=== PATIENT | female | born 1960 | race Hispanic/Latino ===

== ENCOUNTER 2016-12-04 17:46 | Emergency (ER) | payer MEDICARE, BC ==
[2016-12-04 17:46] VITALS: BMI 34.4
[2016-12-04 18:10] VITALS: RESP 18; TEMP 98.5
[2016-12-04] MEDS ORDERED: Sodium Chloride 0.9% 1,000 ML IV STA (18:50)
[2016-12-04] MEDS ORDERED: Iohexol 240 (50 ml) ONE (18:55)
--- NOTE | 2016-12-04 18:58 | ED PDOC ---
Arrival/HPI - General Chief Complaint: Abnormal Skin Integrity Time Seen by Provider: 12/04/16 17:59 Historian: Patient - History of Present Illness Narrative History of Present Illness (Text): 12/04/16 18:52 This 56 yo female presents to this ED c/o right sided abdominal pain, distention , and right sided abscess with surrounding erythema x 7 days. Patient stated she saw Dr. Mcknight last week for diarrhea, who recommended Levaquin, and Vancomycin PO x 1 week. She stated this medication was supposed to help fir her abdominal abscess. However, abscess has worsen today. Patient saw Dr. Arsenio MENDENHALL, who recommended her to go to ED for evaluation, and recommended patient to have Dr. Coombs General surgeon to examine her. Patient noted a fever 2 days ago. Patient denies sob, cp, or urinary symptoms. Time/Duration: > week Quality: Aching Context: Home Past Medical History - Provider Review Nursing Documentation Reviewed: Yes - Infectious Disease Hx of Infectious Diseases: None - Cardiac Hx Pacemaker: No - Pulmonary Hx Respiratory Disorders: No - Neurological Hx Paralysis: No - HEENT Hx HEENT Disorder: No - Renal Hx Renal Disorder: No - Endocrine/Metabolic Hx Hypothyroidism: Yes - Hematological/Oncological Hx Blood Transfusions: No Hx Blood Transfusion Reaction: No - Integumentary Hx Dermatological Disorder: No - Musculoskeletal/Rheumatological Hx Musculoskeletal Disorders: Yes (SPINAL STENOSIS/HERNIATED DIACS) - Gastrointestinal Hx Colitis: Yes Hx Diverticulitis: Yes Hx Gall Bladder Disease: Yes Hx Gastritis: Yes - Genitourinary/Gynecological Hx Genitourinary Disorders: No - Psychiatric Hx Emotional Abuse: No Hx Physical Abuse: No Hx Substance Use: No - Surgical History Hx Cholecystectomy: Yes (May 2015) - Anesthesia Hx Anesthesia: Yes Hx Anesthesia Reactions: Yes (CHILLS AT NITE AFTER GB SX) Hx Malignant Hyperthermia: No - Suicidal Assessment Feels Threatened In Home Enviroment: No Family/Social History - Physician Review Nursing Documentation Reviewed: Yes Family/Social History: No Known Family HX Smoking Status: Never Smoked Hx Alcohol Use: Yes (WINE) Hx Substance Use: No Allergies/Home Meds Allergies/Adverse Reactions: Allergies ciprofloxacin [From Cipro] Allergy (Severe, Verified 12/04/16 18:10) FLU LIKE SYMPTOMS ciprofloxacin HCl [From Cipro] Allergy (Severe, Verified 12/04/16 18:10) FLU LIKE SYMPTOMS levofloxacin [From Levaquin] Allergy (Severe, Verified 12/04/16 18:10) FLU LIKE SYMPTOMS mesalamine [From Lialda] Allergy (Severe, Verified 12/04/16 18:10) DIZZINESS moxifloxacin HCl [From Avelox] Allergy (Severe, Verified 12/04/16 18:10) ANAPHYLAXIS Sulfa (Sulfonamide Antibiotics) Allergy (Intermediate, Verified 12/04/16 18:10) RASH metronidazole [From Flagyl] Adverse Reaction (Severe, Verified 12/04/16 18:10) SEVERE DIARRHEA Home Medications: Home Meds Medication Instructions Recorded Confirmed Acetaminophen/Oxycodone Hydr 1 tab PO Q6H PRN 05/10/15 08/18/16 [Percocet 10/325 mg Tab] Alprazolam [Xanax] 1 mg PO TID 05/10/15 08/18/16 Ondansetron ODT [Zofran ODT] 8 mg PO PRN PRN 05/10/15 08/18/16 Olmesartan Medoxomil [Benicar] 5 mg PO QAM 09/14/15 08/18/16 Loperamide [Loperamide HCl] 2 mg PO PRN PRN 08/17/16 Review of Systems - Review of Systems Constitutional: Normal. absent: Fatigue, Weight Change, Fevers, Night Sweats Eyes: Normal ENT: Normal Respiratory: Normal. absent: SOB, Cough Cardiovascular: Normal Gastrointestinal: Abdominal Pain, Diarrhea (chronic), Nausea (chronic). absent : Vomiting Genitourinary Female: Normal. absent: Dysuria, Frequency, Hematuria Musculoskeletal: Normal Skin: Abscess, Cellulitis (see HPI) Neurological: Normal. absent: Headache, Dizziness, Focal Weakness Endocrine: Normal Hemo/Lymphatic: Normal Psychiatric: Normal Physical Exam Vital Signs Temp Pulse Resp BP Pulse Ox 12/04/16 18:35 98.5 F 88 18 176/97 H 97 12/04/16 18:03 98.5 F 88 18 176/97 H 97 Temperature: Afebrile Blood Pressure: Normal Pulse: Regular Respiratory Rate: Normal Appearance: Positive for: Well-Appearing, Non-Toxic, Comfortable Pain Distress: None Mental Status: Positive for: Alert and Oriented X 3 - Systems Exam Head: Present: Atraumatic, Normocephalic Pupils: Present: PERRL Extroacular Muscles: Present: EOMI Conjunctiva: Present: Normal Mouth: Present: Moist Mucous Membranes Neck: Present: Normal Range of Motion Respiratory/Chest: Present: Clear to Auscultation, Good Air Exchange. No: Respiratory Distress, Accessory Muscle Use Cardiovascular: Present: Regular Rate and Rhythm, Normal S1, S2. No: Murmurs Abdomen: Present: Normal Bowel Sounds, Other ((+) right sided abdominal abscess , approx 4 cm, with surrounding erythema). No: Tenderness, Distention, Peritoneal Signs, Rebound, Guarding Back: Present: Normal Inspection Upper Extremity: Present: Normal Inspection. No: Cyanosis, Edema Lower Extremity: Present: Normal Inspection. No: Edema Neurological: Present: GCS=15, CN II-XII Intact, Speech Normal Skin: Present: Warm, Dry, Normal Color. No: Rashes Psychiatric: Present: Alert, Oriented x 3, Normal Insight, Normal Concentration Medical Decision Making ED Course and Treatment: 12/04/16 22:[address] Alvarez regarding patient c/o abdominal abscess. He said if patient needs an I&D to do it, and give patient ABX. If not, give patient ABX and f/u his office tomorrow. He said to avoid prescribing patient narcotics. 12/04/16 23:50 market president had evaluated patient, and contacted Dr. Bernstein. They recommended out-patient treatment with ABX, and f/u Re-evaluation Time: 23:50 Reassessment Condition: Re-examined, Improved - Lab Interpretations Lab Results: 12/04/16 19:30 12/04/16 19:30 Lab Results 12/04/16 19:30: Sodium 137, Potassium 3.6, Chloride 99, Carbon Dioxide 28, Anion Gap 14, BUN 17, Creatinine 0.7, Est GFR ( Amer) > 60, Est GFR (Non- Af Amer) > 60, Random Glucose 88, Calcium 10.3, Total Bilirubin 0.7, AST 28, ALT 38, Alkaline Phosphatase 90, Total Protein 7.7, Albumin 4.4, Globulin 3.3, Albumin/Globulin Ratio 1.3, Lipase 41 12/04/16 19:30: Urine Color Yellow, Urine Appearance Clear, Urine pH 5.5, Ur Specific [place] >= 1.030, Urine Protein Negative, Urine Glucose (UA) Negative, Urine Ketones Negative, Urine Blood Small H, Urine Nitrate Negative, Urine Bilirubin Negative, Urine Urobilinogen 0.2, Ur Leukocyte Esterase Negative, Urine RBC 2 - 5, Urine WBC 0 - 2, Ur Epithelial Cells 1 - 3, Calcium Oxalate Crystal Small, Urine Bacteria Mod 12/04/16 19:30: PT 10.4, INR 0.96, APTT 29.4 12/04/16 19:30: WBC 6.0 D, RBC 4.22, Hgb 14.1, Hct 41.2, MCV 97.6, MCH 33.4, MCHC 34.2, RDW 12.8, Plt Count 271, MPV 8.6, Gran % 60.6, Lymph % (Auto) 30.5, [place] % (Auto) 7.7 H, Eos % (Auto) 0.7 L, Baso % (Auto) 0.5, Gran # 3.64, Lymph # 1.8, [place] # 0.5, Eos # 0.0, Baso # 0.03 - RAD Interpretation Narrative RAD Interpretations (Text): 12/04/16 20:08 Accession No. 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 no. Patient Name: BEN GREGORIO N Pt. Address: [address] [place] [address] [address]T Med[address] Rec #: [id number] [place] [address]: Yeison Deleon PA-C, Pt Order Location: ED : 02/10/1988 Female Age: 28 Order #: [id number] Reason for exam: melinda-umbilical pain, r/o intra abdominal abscess CT Scan ABD PELVIS PO IV CONTRAST Exam Date: 12/04/16 This imaging exam was performed at [facility] EXAM: CT Abdomen and Pelvis With Intravenous Contrast CLINICAL HISTORY: 28 years old, female; Pain; Abdominal pain; Acute; Additional info: Melinda-umbilical pain, R/O intra abdominal abscess TECHNIQUE: Axial computed tomography images of the abdomen and pelvis with intravenous contrast. This CT exam was performed using one or more of the following dose reduction techniques: automated exposure control, adjustment of the mA and/or kV according to patient size, and/or use of iterative reconstruction technique. Coronal and sagittal reformatted images were created and reviewed. CONTRAST: 100 mL of omni administered intravenously. EXAM DATE/TIME: Radiology Orders: 12/04/16 18:50 ABD PELVIS PO & IV CONTRAST [CT] Stat - Medication Orders Current Medication Orders: Discontinued Medications Sodium Chloride (Sodium Chloride 0.9%) 1,000 mls @ 1,000 mls/hr IV .Q1H STA Stop: 12/04/16 19:49 Last Admin: 12/04/16 19:32 Dose: 1,000 mls/hr Iohexol (Omnipaque 240 (50 Ml)) Confirm Administered Dose 50 ml .ROUTE .STK-MED ONE Stop: 12/04/16 18:56 Iohexol (Omnipaque 350 100 Ml) Confirm Administered Dose 350 mg .ROUTE .STK-MED ONE Stop: 12/04/16 19:37 Morphine Sulfate (Morphine) 2 mg IVP STAT STA Stop: 12/04/16 20:00 Last Admin: 12/04/16 20:09 Dose: 2 mg Ondansetron HCl (Zofran Inj) 4 mg IVP STAT STA Stop: 12/04/16 18:51 Last Admin: 12/04/16 19:34 Dose: 4 mg Disposition/Present on Arrival - Present on Arrival Any Indicators Present on Arrival: No History of DVT/PE: No History of Uncontrolled Diabetes: No Urinary Catheter: No History of Decub. Ulcer: No History Surgical Site Infection Following: None - Disposition Have Diagnosis and Disposition been Completed?: Yes Diagnosis: Cellulitis Disposition: HOME/ ROUTINE Disposition Time: 23:51 Patient Plan: Discharge Condition: GOOD Discharge Instructions (ExitCare): Cellulitis (ED) Additional Instructions: Call private doctor for follow up visit in 1-2 days. Take medication as instructed. Call [facility] office for revaluation, also call Dr. Alvarez office tomorrow for revaluation. Return to emergency if symptoms worsen. Clean wound with soap and water daily and apply a dressing gauze. Continue with home Percocet Prescriptions: Amoxicillin/Clavulanate [Augmentin 875 MG-125 MG] 1 tab PO BID #20 tab Referrals: Tom Alvarez MD [Primary Care Provider] - Follow up with primary Orlando Mcclendon MD [Staff Provider] - Follow up with primary
[2016-12-04] MEDS ORDERED: Iohexol 350 MG/100 ML VIAL ONE (19:36)
[2016-12-04 19:41] LABS: ADD MANUAL DIFF? NO
[2016-12-04 19:48] LABS: BASO # 0.03 K/mm3 (0.0-2.0); BASO % 0.5 % (0.0-3.0); EOS % 0.7 % (1.5-5.0); GRAN # 3.64 (1.4-6.5); GRAN % 60.6 % (50.0-68.0); HEMATOCRIT 41.2 % (36.0-48.0); LYMPH # 1.8 (1.2-3.4); LYMPH % 30.5 % (22.0-35.0); MEAN CELL VOLUME 97.6 fL (80.0-105.0); MEAN CORPUSCULAR HEMOGLOBIN 33.4 pg (25.0-35.0); MEAN CORPUSCULAR HGB CONC 34.2 g/dl (31.0-37.0); MEAN PLATELET VOLUME 8.6 fl (7.0-11.0); MONO # 0.5 (0.1-0.6); MONO % 7.7 % (1.0-6.0); PH,URINE 5.5 (4.7-8.0); PLATELET COUNT 271 10^3/uL (120.0-450.0); RED CELL DISTRIBUTION WIDTH 12.8 % (11.5-14.5); URINE BILIRUBIN NEGATIVE (NEGATIVE); URINE BLOOD SMALL (NEGATIVE); URINE COLOR YELLOW (YELLOW); URINE GLUCOSE (UA) NEGATIVE (NEGATIVE); URINE KETONE NEGATIVE (NEGATIVE); URINE LEUKOCYTE ESTERASE NEGATIVE Leu/uL (NEGATIVE); URINE PROTEIN NEGATIVE mg/dL (<30 mg/dL); URINE UROBILINOGEN 0.2 E.U./dL (<1 E.U./dL)
[2016-12-04 19:49] LABS: URINE APPEARANCE CLEAR (CLEAR)
[2016-12-04 19:58] LABS: ALB/GLOB RATIO 1.3 (1.1-1.8); ALKALINE PHOSPHATASE 90 U/L (38-133); ALT/SGPT 38 U/L (7-56); AST/SGOT 28 U/L (15-39); BILIRUBIN,TOTAL 0.7 mg/dL (0.2-1.3); BLOOD UREA NITROGEN 17 mg/dL (7-21); CALCIUM 10.3 mg/dL (8.4-10.5); CARBON DIOXIDE 28 mmol/L (21-33); CHLORIDE 99 mmol/L (98-107); GFR AFRICAN-AMERICAN > 60; GLUCOSE,RANDOM 88 mg/dL (70-110); LIPASE 41 U/L (23-300); POTASSIUM 3.6 mmol/L (3.6-5.0); SODIUM 137 mmol/L (132-148); TOTAL PROTEIN 7.7 g/dL (5.8-8.3)
[2016-12-04 19:59] LABS: INR 0.96 (0.93-1.08); PARTIAL THROMBOPLASTIN TIME 29.4 Seconds (23.7-30.8)
[2016-12-04] MEDS ORDERED: Morphine 2 mg/ml ISec IVP STA (19:59)
[2016-12-04 20:03] LABS: URINE CALCIUM OXALATE CRYSTALS SMALL /hpf; URINE WBC 0 - 2 /hpf (0-6)
[2016-12-04 20:04] LABS: URINE BACTERIA MOD (NEG)
--- NOTE | 2016-12-04 22:21 | CT ---
EXAM: CT Abdomen and Pelvis With Intravenous Contrast CLINICAL HISTORY: 56 years old, female; Pain; Abdominal pain; Localized; Right; Additional info: Right sided pain R/O intra-abdominal abscess TECHNIQUE: Axial computed tomography images of the abdomen and pelvis with intravenous contrast. This CT exam was performed using one or more of the following dose reduction techniques: automated exposure control, adjustment of the mA and/or kV according to patient size, and/or use of iterative reconstruction technique. Coronal and sagittal reformatted images were created and reviewed. CONTRAST: 100 mL of OMNI administered intravenously. EXAM DATE/TIME: 12/04/2016 6:50 PM COMPARISON: CT - ABD PELVIS IV CONTRAST ONLY 06/15/2016 1:21:27 AM FINDINGS: Lower thorax: Heart size is normal. There is atelectasis and scarring at the lung bases. There is a small hiatal hernia. Limitations: Motion artifact degrades image quality. ABDOMEN: Liver: Liver is mildly enlarged. Gallbladder and bile ducts: Gallbladder is surgically absent. Common bile duct is prominent. Pancreas: Pancreas is mildly atrophic. Spleen: unremarkable Adrenals: unremarkable Kidneys and ureters: unremarkable Stomach and bowel: Stomach is partially distended. Rotation is normal. There is duodenal wall and fold thickening. Nonopacification limits evaluation of the proximal jejunum. There is no small bowel obstruction. There is mild terminal ileal wall thickening. Appendix is unremarkable. There is scattered diverticulosis Appendix: See stomach and bowel PELVIS: Bladder: Bladder is partially distended. There is mild bladder wall thickening Reproductive: Uterus and adnexal structures are unremarkable. There are clips in the left adnexa. ABDOMEN and PELVIS: Intraperitoneal space: There is no significant fluid. There is no free air. Bones/joints: There are degenerative changes in the osseus structures. Soft tissues: There is a small paraumbilical ventral hernia. There is skin thickening and cutaneous edema in the right upper quadrant. There is inflammation and edema in subcutaneous fat. Vasculature: There are calcified phleboliths. There are vascular calcifications. Lymph nodes: There is no pathologic adenopathy. IMPRESSION: Right upper quadrant abdominal wall cellulitis; no acute solid visceral abnormality; prominent common duct status post cholecystectomy; possible enteritis , no CT findings of appendicitis or diverticulitis Additional findings as described above.
[2016-12-04] MEDS ORDERED: Amoxicillin-Clav 875-125 mg Tab PO STA (23:49)
--- NOTE | 2016-12-05 00:07 | CP.PCM.CON ---
History of Present Illness - History of Present Illness History of Present Illness: General Surgery Consult Re: abdominal abscess HPI: 56F presented to ER C/O RUQ abd pain, distention, and erythema x [address] Mcknight last week for her diarrhea issues, and gave her levaquin, and Vancomycin PO x 1 week. She stated these medication were to help her abdominal abscess. However, abscess has worsen today and she admits to not taking the abx as prescribed. Pt saw Dr. Cesar for GI issues today, who recommended she to go to ED for eval, and recommended pt have Dr. Mcclendon see her. Fever 2 days prior, wears depends 2/2 diarrhea on occasion. Denies chills, night sweats , SOB, chest pain, or urinary symptoms. Pt feels all this is a result of her cholecystectomy done in [place] 2011. PMH: Asthma, Gastritis, Hypothyroid, Spinal stenosis, Herniated disks, Eye issues, Diverticulitis, Fibromyalgia, IBD PSH: Eye surgeries, cholecystectomy SH: Smoker, uses e-cigarettes, Social EtOH, No drug use. All: sulfa, clinda, cipro, flagyl, Levofloxacin, mesalamine, moxifloxacin Meds: See MAR Review of Systems - Review of Systems All systems: reviewed and no additional remarkable complaints except (as per HPI ) Past Patient History - Infectious Disease Hx of Infectious Diseases: None - Past Social History Smoking Status: Never Smoked - CARDIAC Hx Pacemaker: No - PULMONARY Hx Respiratory Disorders: No - NEUROLOGICAL Hx Paralysis: No - HEENT Hx HEENT Problems: No - RENAL Hx Chronic Kidney Disease: No - ENDOCRINE/METABOLIC Hx Hypothyroidism: Yes - HEMATOLOGICAL/ONCOLOGICAL Hx Blood Transfusions: No Hx Blood Transfusion Reaction: No - INTEGUMENTARY Hx Dermatological Problems: No - MUSCULOSKELETAL/RHEUMATOLOGICAL Hx Musculoskeletal Disorders: Yes (SPINAL STENOSIS/HERNIATED DIACS) - GASTROINTESTINAL Hx Colitis: Yes Hx Diverticulitis: Yes Hx Gall Bladder Disease: Yes Hx Gastritis: Yes - GENITOURINARY/GYNECOLOGICAL Hx Genitourinary Disorders: No - PSYCHIATRIC Hx Emotional Abuse: No Hx Physical Abuse: No Hx Substance Use: No - SURGICAL HISTORY Hx Cholecystectomy: Yes (May 2015) - ANESTHESIA Hx Anesthesia: Yes Hx Anesthesia Reactions: Yes (CHILLS AT NITE AFTER GB SX) Hx Malignant Hyperthermia: No Meds Home Medications: Home Medication List Medication Instructions Recorded Confirmed Type Amoxicillin/Clavulanate [Augmentin 1 tab PO BID #20 tab 12/04/16 Rx 875 MG-125 MG] Allergies/Adverse Reactions: Allergies Allergy/AdvReac Type Severity Reaction Status Date / Time ciprofloxacin [From Cipro] Allergy Severe FLU LIKE Verified 12/04/16 18:10 SYMPTOMS ciprofloxacin HCl Allergy Severe FLU LIKE Verified 12/04/16 18:10 [From Cipro] SYMPTOMS levofloxacin [From Levaquin] Allergy Severe FLU LIKE Verified 12/04/16 18:10 SYMPTOMS mesalamine [From Lialda] Allergy Severe DIZZINESS Verified 12/04/16 18:10 moxifloxacin HCl Allergy Severe ANAPHYLAXIS Verified 12/04/16 18:10 [From Avelox] Sulfa (Sulfonamide Allergy Intermediate RASH Verified 12/04/16 18:10 Antibiotics) metronidazole [From Flagyl] AdvReac Severe SEVERE Verified 12/04/16 18:10 DIARRHEA Physical Exam - Constitutional Appears: Non-toxic, No Acute Distress - Head Exam Head Exam: ATRAUMATIC, NORMOCEPHALIC - Eye Exam Eye Exam: EOMI. absent: Scleral icterus - ENT Exam ENT Exam: Mucous Membranes Moist Additional comments: trachea midline - Respiratory Exam Respiratory Exam: NORMAL BREATHING PATTERN. absent: Respiratory Distress - Cardiovascular Exam Cardiovascular Exam: RRR, +S1, +S2 - GI/Abdominal Exam GI & Abdominal Exam: Guarding (in RUQ), Soft, Tenderness (in RUQ). absent: Distended, Firm, Rigid Additional comments: RUQ with an area of erythema ~10cm. 2cm raised area with 3 pinpoint holes with interconnection under the skin. Serous fluid expressed, no pus. - Rectal Exam Rectal Exam: Deferred - Extremities Exam Extremities exam: Positive for: pedal edema. Negative for: calf tenderness - Back Exam Back exam: absent: CVA tenderness (L), CVA tenderness (R) - Neurological Exam Neurological exam: Alert, Oriented x3 - Psychiatric Exam Psychiatric exam: Normal Affect, Normal Mood - Skin Skin Exam: Dry, Warm Results - Vital Signs Recent Vital Signs: Last Vital Signs Temp 98.5 F 12/04/16 18:35 Pulse 88 12/04/16 18:35 Resp 18 12/04/16 18:35 BP 176/97 H 12/04/16 18:35 Pulse Ox 97 12/04/16 18:35 - Labs Result Diagrams: 12/04/16 19:30 12/04/16 19:30 Labs: Laboratory Results - last 24 hr 12/04/16 12/04/16 12/04/16 19:30 19:30 19:30 WBC 6.0 D RBC 4.22 Hgb 14.1 Hct 41.2 MCV 97.6 MCH 33.4 MCHC 34.2 RDW 12.8 Plt Count 271 MPV 8.6 Gran % 60.6 Lymph % (Auto) 30.5 [place] % (Auto) 7.7 H Eos % (Auto) 0.7 L Baso % (Auto) 0.5 Gran # 3.64 Lymph # 1.8 [place] # 0.5 Eos # 0.0 Baso # 0.03 PT 10.4 INR 0.96 APTT 29.4 Sodium Potassium Chloride Carbon Dioxide Anion Gap BUN Creatinine Est GFR ( Amer) Est GFR (Non-Af Amer) Random Glucose Calcium Total Bilirubin AST ALT Alkaline Phosphatase Total Protein Albumin Globulin Albumin/Globulin Ratio Lipase Urine Color Yellow Urine Appearance Clear Urine pH 5.5 Ur Specific [place] >= 1.030 Urine Protein Negative Urine Glucose (UA) Negative Urine Ketones Negative Urine Blood Small H Urine Nitrate Negative Urine Bilirubin Negative Urine Urobilinogen 0.2 Ur Leukocyte Esterase Negative Urine RBC 2 - 5 Urine WBC 0 - 2 Ur Epithelial Cells 1 - 3 Calcium Oxalate Crystal Small Urine Bacteria Mod 12/04/16 19:30 WBC RBC Hgb Hct MCV MCH MCHC RDW Plt Count MPV Gran % Lymph % (Auto) [place] % (Auto) Eos % (Auto) Baso % (Auto) Gran # Lymph # [place] # Eos # Baso # PT INR APTT Sodium 137 Potassium 3.6 Chloride 99 Carbon Dioxide 28 Anion Gap 14 BUN 17 Creatinine 0.7 Est GFR ( Amer) > 60 Est GFR (Non-Af Amer) > 60 Random Glucose 88 Calcium 10.3 Total Bilirubin 0.7 AST 28 ALT 38 Alkaline Phosphatase 90 Total Protein 7.7 Albumin 4.4 Globulin 3.3 Albumin/Globulin Ratio 1.3 Lipase 41 Urine Color Urine Appearance Urine pH Ur Specific [place] Urine Protein Urine Glucose (UA) Urine Ketones Urine Blood Urine Nitrate Urine Bilirubin Urine Urobilinogen Ur Leukocyte Esterase Urine RBC Urine WBC Ur Epithelial Cells Calcium Oxalate Crystal Urine Bacteria - Imaging and Cardiology CT scan - abdomen Status: Image reviewed by me, Report reviewed by me Assessment & Plan - Assessment and Plan (Free Text) Assessment: 56F with cellulitis of the abdomen Plan: No drainable abscess on physical exam or on imaging Follow up with PMD Augmentin per ED D/W Dr. Danelle Herbert PGY3
[2016-12-05 00:46] VITALS: BP 146/88; PULSE 84; O2SAT 98
== END 2016-12-05 00:05 | disposition home or self-care (01) ==
LOC: ED 17:46
DX: L03.311 Cellulitis of abdominal wall (principal)
CPT/HCPCS: 74177; 80053; 81001; 83690; 85025; 85610; 85730; 87086; 96374; 96375; 99283; J2270; J2405; J7040; Q9966; Q9967